=== PATIENT | male | born 2000 | race Caucasian/White ===

== ENCOUNTER 2021-04-12 13:50 | Emergency (ER) | payer BC, OTHER ==
[~2021-04-12] VITALS: Ht 180.3 cm; Wt 97.0 kg
[2021-04-12] MEDS ORDERED: ONDANSETRON 2MG/ML, 2ML ONE (14:10)
--- NOTE | 2021-04-12 14:17 | NUR ---
PT MEDICATED ORDERED. PT P/W N/V SINCE YESTERDAY, MULTIPLE TIMES WITH NO DIARRHEA. HE DOES C/O DIFFUSE ABDOMINAL PAIN. HE REPORTS RECEIVING FIRST DOSE PT ON MONITOR. OF MODERNA VACCINE ON WEDNESDAY. PT ON MONITOR.
[2021-04-12] MEDS ORDERED: SODIUM CHLORIDE 0.9% 1,000 ML IV ONE (14:30)
[2021-04-12] MEDS ORDERED: SODIUM CHLORIDE 0.9% 1,000ML IVBOLUS ONE (14:30)
[2021-04-12] MEDS ORDERED: ONDANSETRON 2MG/ML, 2ML IVPush ONE (14:30)
[2021-04-12] MEDS ORDERED: SODIUM CHLORIDE FLUSH 10ML SYR IVF ONE (14:30)
[2021-04-12 14:33] LABS: BASOPHILS % (AUTO) 0 % (0-1); EOSINOPHILS % (AUTO) 0 % (1-7); LYMPHOCYTES % (AUTO) 18 % (22-44); MEAN CORPUSCULAR HEMOGLOBIN 29.8 pg (27.5-34.5); MEAN CORPUSCULAR HGB CONC 33.9 g/dL (33.2-36.2); MONOCYTES % (AUTO) 7 % (2-9); NEUTROPHILS % (AUTO) 75 % (42-75); PLATELET COUNT 362 x10^3/uL (130-400); RED BLOOD COUNT 5.92 x10^6/uL (4.38-5.82); RED CELL DISTRIBUTION WIDTH 13.6 % (9.4-14.8)
[2021-04-12] MEDS ORDERED: PROMETHAZINE 25 MG/ML, 1ML ONE (14:35)
--- NOTE | 2021-04-12 14:41 | NUR ---
PT MEDICATED PER EMAR FOR NAUSEA PER DR. SHORT. DANIEL.
[2021-04-12 14:42] LABS: ALANINE AMINOTRANSFERASE 50 U/L (12-78); ALBUMIN 5.1 g/dL (3.4-5.0); ANION GAP 8 mmol/L (5-15); CALCIUM 10.6 mg/dL (8.5-10.1); CHLORIDE 97 mmol/L (98-107)
[2021-04-12 14:44] LABS: ALKALINE PHOSPHATASE 93 U/L (45-117); BILIRUBIN,TOTAL 1.1 mg/dL (0.2-1.0); TOTAL PROTEIN 10.1 g/dL (6.4-8.2)
[2021-04-12] MEDS ORDERED: PROMETHAZINE 25 MG/ML, 1ML IM ONE (15:00)
[2021-04-12 15:39] LABS: MICROSCOPIC INDICATED
[2021-04-12 16:04] VITALS: BP 129/63
--- NOTE | 2021-04-12 16:05 | NUR ---
PT RESTING IN BED. TOLERATING PO. VSS. NADN.
[2021-04-12] MEDS ORDERED: CEFTRIAXONE 1,000 MG in DEXTROSE 5% 50 ML IVPB ONE (16:30)
--- NOTE | 2021-04-12 16:50 | NUR ---
Patient given discharge instructions and they have confirmed that they understand the instructions. Patient ambulatory with steady gait. NAD, all questions answered appropriately, denies additional needs at this time. No personal belongings left in room after discharge.
== END 2021-04-12 16:51 | disposition home or self-care (01) ==
LOC: ED 15:57
DX: N30.00 Acute cystitis without hematuria (principal); E86.0 Dehydration; R11.2 Nausea with vomiting, unspecified
CPT/HCPCS: 36415; 80053; 81001; 85025; 87086; 96372; 96374; 99284; J2405; J2550; J7030